=== PATIENT | female | born 1940 | race Caucasian/White ===

== ENCOUNTER 2018-06-27 09:12 | Emergency (ER) | payer MEDICARE, OTHER ==
--- OUTSIDE RECORDS SUMMARY | 2018-06-27 09:55 | XMS REPORT | Continuity of Care Document ---
:1940 Author Organization [facility] Care Team Providers Name Role Phone GITA NÚÑEZ Primary Care Physician Allergies and Intolerances No Allergy Data in the System Medications No Known Medications Problems No Data in the system Procedures No data in the system Results Radiology Results Order: US-ABDOMEN/BACK LIMITED (RUQ)Exam Completion Date:06/08/2018 07: 11:34 AM US-ABDOMEN/BACK LIMITED ( RUQ) ORDERING CLINICAL INFORMATION: GERD w/o esophagitis [phone] -- Gastroesophageal reflux disease without esophagitis ADDITIONAL CLINICAL INFORMATION: None. COMPARISON: None. PROCEDURE: Sonographic evaluation of the right upper quadrant was performed using grayscale ultrasound. FINDINGS: Liver: Normal echotexture. No focal lesions. Common Bile Duct: Measures 0.3 cm diameter, nondilated. Gallbladder: No stones. No wall thickening or pericholecystic fluid. No significant tenderness with transducer pressure. Pancreas: Visualized pancreas unremarkable. Right Kidney: 9.1 cm length. Normal echotexture. No hydronephrosis. No stones. Spleen: 8.5 cm. IMPRESSION: No sonographic evidence of cholecystitis. END OF REPORT Electronically signed By: Mansoor Barber M.D. Read By: MANSOOR BARBER Date: 06/09/2018 09:58 Social History Code Code System Social History Observation Description Dates Observed [id number] SNOMED CT Current Smoking Status Never smoker UNK AdministrativeGender Sex Assigned At Unknown Vital Signs No data in the system Goals Section No data in the system Health Concerns No data in the systemEncounter Diagnosis Date Code Code System Diagnosis Status K21.9 ICD10 GERD WITHOUT ESOPHAGITIS Active Advance Directives No Data in the System Family History No data in the system Functional Status No data in the system Immunizations No data in the system Medical Equipment No data in the system Mental Status No data in the system Assessment and Plan Assessments No data in the systemPlan Of Treatment No data in the systemPending Tests No data in the system Hospital Discharge Instructions No data in the system Reason for Visit No data in the system
--- OUTSIDE RECORDS SUMMARY | 2018-06-27 09:55 | XMS REPORT | Continuity of Care Document ---
:[address] [facility] [place] Support Name Relationship Address Phone PIPER NAM spouse [address] [facility] [place] [address] PIPER NAM spouse [address] [facility] [place] [address] Allergies and Intolerances No Allergy Data in the System Medications No Known Medications Problems No Data in the system Procedures No data in the system Results Laboratory Results Order: CBC DIFF Specimen Source: Body Site : Legend: (G,H)=High, (GG,HH,CH,#H)=Above High Threshold, (#,L)=Low, (##,CL,#L, LL)=Below Low Threshold, (C,CC,CA,#A,A)=Abnormal LOINC Test Result Flag Range Units Date 90-2 1WBC # Bld Auto 6.9 4.8-10.8 K/uL 05/31/2018 10:52 35370-7 1RBC # Bld 4.90 4.20-5.40 M/uL 05/31/2018 10:52 718-7 1Hgb Bld-mCnc 15.2 12.0-16.0 gm/dL 05/31/2018 10:52 4544-3 1Hct VFr Bld Auto 44.9 36.0-48.0 % 05/31/2018 10:52 787-2 1MCV RBC Auto 91.6 80.0-100.0 fL 05/31/2018 10:52 90143-2 1MCHC RBC-mCnc 33.9 30.0-36.5 % 05/31/2018 10:52 67050-3 1MCH RBC Qn 31.0 27.0-34.0 pg 05/31/2018 10:52 60695-0 1RDW RBC 12.5 11.0-15.0 % 05/31/2018 10:52 777-3 1Platelet # Bld Auto 570 H 130-450 K/uL 05/31/2018 10:52 86975-6 1PMV Bld Auto 7.3 6.0-12.0 fL 05/31/2018 10:52 751-8 1Neutrophils # Bld Auto 69 37-80 % 05/31/2018 10:52 32538-4 1Lymphocytes NFr Bld 20 10-50 % 05/31/2018 10:52 5905-5 1Monocytes NFr Bld Auto 7 0-12 % 05/31/2018 10:52 70757-6 1Eosinophil # Bld 3 <=8 % 05/31/2018 10:52 704-7 1Basophils # Bld Auto 0 <=3 % 05/31/2018 10:52 22396-3 1Neutrophils # Bld 4.8 1.8-8.6 K/uL 05/31/2018 10:52 731-0 1Lymphocytes # Bld Auto 1.4 0.5-5.0 K/uL 05/31/2018 10:52 742-7 1Monocytes # Bld Auto 0.5 0.0-1.3 K/uL 05/31/2018 10:52 53797-2 1Eosinophil # Bld 0.2 0.0-0.9 K/uL 05/31/2018 10:52 704-7 1Basophils # Bld Auto 0.0 0.0-0.3 K/ul 05/31/2018 10:52 Performing Lab Footnotes:[facility] - [id number] - [address] [place] [address] EUSEBIA [id number] Order: HEPATIC FUNCT PANEL Specimen Source: Body Site: Legend: (G,H)= High, (GG,HH,CH,#H)=Above High Threshold, (#,L)=Low, (##,CL,#L,LL)=Below Low Threshold, (C,CC,CA,#A,A)=Abnormal LOINC Test Result Flag Range Units Date 2885-2 1Prot SerPl-mCnc 7.5 6.4-8.2 gm/dL 05/31/2018 10:52 1751-7 1Albumin SerPl-mCnc 4.9 H 3.2-4.6 gm/dL 05/31/2018 10:52 58412-0 1Bilirub Bld-mCnc 0.8 0.0-1.2 mg/dL 05/31/2018 10:52 1968-7 1Bilirub Direct SerPl-mCnc 0.2 0.0-0.3 mg/dL 05/31/2018 10:52 6768-6 1ALP SerPl-cCnc 106 40-150 U/L 05/31/2018 10:52 1742-6 1ALT SerPl-cCnc 17 0-55 U/L 05/31/2018 10:52 1920-8 1AST SerPl-cCnc 19 5-37 U/L 05/31/2018 10:52 Performing Lab Footnotes:[facility] - [id number] - [address] [place] [address] EUSEBIA Silva LIO Order: Hepatitis Acute Profile Specimen Source: Blood Body Site: Legend: (G,H)=High, (GG,HH,CH,#H)=Above High Threshold, (#,L)=Low, (##,CL,#L,LL) =Below Low Threshold, (C,CC,CA,#A,A)=Abnormal LOINC Test Result Flag Range Units Date 09782-4 1HAV IgM SerPl Ql NEGATIVE NEGATIVE 05/31/2018 IA 10:52 5195-3 1HBV surface Ag Ser NON REACTIVE NON REACTIVE 05/31/2018 Ql 10:52 97348-0 1HBV core IgM Ser NON REACTIVE NON REACTIVE 05/31/2018 Ql 10:52 09242-6 1HCV Ab s/co SerPl 0.08 0.00-0.99 s/coratio 05/31/2018 IA 10:52 Interpretive Jovanna: 1Non Reactive: < 0.79 Equviocal: 0.80 - 0.99 Reactive: > 1.00 . The CDC recommends that a positive HCV antibody result be followed up with a HCV Nucleic Acid Amplification test(HCV RNA PCR). Performing Lab Footnotes:[facility] - [id number] - [address] [place] [address] EUSEBIA Silva LIO Social History Code Code System Social History Observation Description Dates Observed [id number] SNOMED CT Current Smoking Status Never smoker [...]
--- OUTSIDE RECORDS SUMMARY | 2018-06-27 09:55 | XMS REPORT | Continuity of Care Document ---
:1940 Author Organization [facility] Support Name Relationship Address Phone PIPER NAM spouse [address] [facility] [address] PIPER NAM spouse [address] [facility] [address] Allergies and Intolerances No Allergy Data in the System Medications No Known Medications Problems No Data in the system Procedures Code Code System Procedure Date 28845 CPT4 EGD TRANSORAL BIOPSY SINGLE/MULTIPLE 06/03/2018 Results Pathology Results Order:PATHOLOGY CYTOLOGY HISTOLCollected Date : 06/03/2018 12:00:00 AM TISSUE A. DUODENAL BIOPSIES B. GASTRIC ANTRUM BIOPSY C. GASTRIC BODY POLYP CLINICAL DIAGNOSIS GERD FINAL DIAGNOSIS A. SMALL BOWEL, DUODENUM, BIOPSY: NO SIGNIFICANT PATHOLOGICAL CHANGES. B. STOMACH, ANTRUM, BIOPSY: FOCAL ACTIVE GASTRITIS. NO H. PYLORI IDENTIFIED. C. STOMACH, BODY, POLYPECTOMY: NO SIGNIFICANT PATHOLOGICAL CHANGES. NO H. PYLORI IDENTIFIED. GROSS A. SPECIMEN IS RECEIVED IN [facility] [place], WITH MEDICAL RECORD NUMBER, DATE OF AND "BIOPSY, DUODENUM", AND CONSISTS OF A 0.2 CM. IN DIAMETER AGGREGATE OF SPANGLER TISSUE FRAGMENTS. THE ENTIRE CONTENTS OF THE CONTAINER IS SUBMITTED IN CASSETTE 1. B. SPECIMEN IS RECEIVED IN [facility] [place], WITH MEDICAL RECORD NUMBER, DATE OF AND "BIOPSY, ANTRUM", AND CONSISTS OF TWO 0.2 CM. IN DIAMETER FRAGMENTS OF SPANGLER TISSUE. THE ENTIRE CONTENTS OF THE CONTAINER IS SUBMITTED IN CASSETTE 2. C. SPECIMEN IS RECEIVED IN [facility] [place], WITH MEDICAL RECORD NUMBER, DATE OF AND "GASTRIC BODY POLYP", AND CONSISTS OF A 0.2 CM. IN DIAMETER FRAGMENT OF SPANGLER TISSUE. THE ENTIRE CONTENTS OF THE CONTAINER IS SUBMITTED IN CASSETTE 3. (CG/KI) MICROSCOPIC IN PARTS B AND C, WARTHIN-STARRY STAIN FAILS TO HIGHLIGHT ORGANISMS CONSISTENT WITH H. PYLORI. APPROPRIATE REACTIVE APPEARING CONTROLS ARE REVIEWED. JACKLYN DAS D.O. , PATHOLOGIST (CASE SIGNED 06/04/2018) Social History Code Code System Social History Observation Description Dates Observed [id number] SNOMED CT Current Smoking Status Never smoker [...]
[2018-06-27 10:06] VITALS: BP 126/62
--- NOTE | 2018-06-27 10:14 | UC ---
Respiratory Complaint HPI - HPI Summary HPI Summary: Pt c/o sudden onset of "hoarse voice" began 5 days ago, dry cough began 4days ago that worsens in recumbent position and ST throat that began 2 nights ago - History of Current Complaint Chief Complaint: UCGeneralIllness Stated Complaint: COUGH,LOSS OF VOICE,ST Time Seen by Provider: 06/27/18 09:55 Hx Obtained From: Patient ?: No Onset/Duration: Gradual Onset, Lasting Days, Still Present Timing: Constant Severity Initially: Mild Severity Currently: Mild Pain Intensity: 0 Character: Cough: Nonproductive Aggravating Factors: Recumbent Position Alleviating Factors: Nothing Associated Signs And Symptoms: Positive: Hoarseness - Risk Factors Pulmonary Embolism Risk Factors: Negative Cardiac Risk Factors: Negative Pseudomonas Risk Factors: Negative Tuberculosis Risk Factors: Negative - Allergies/Home Medications Allergies/Adverse Reactions: Allergies Allergy/AdvReac Type Severity Reaction Status Date / Time acyclovir Allergy Hives Verified 06/27/18 10:03 Home Medications: Home Medications Aspirin EC TAB* [Ecotrin EC Low Dose 81 MG*] 81 mg PO DAILY 06/27/18 [History Confirmed 06/27/18] Atorvastatin* [Lipitor 20 MG*] 20 mg PO DAILY 06/27/18 [History Confirmed ] Omeprazole CAP* [Prilosec CAP* 20 MG] 40 mg PO DAILY 06/27/18 [History Confirmed 06/27/18] Ranitidine TAB (NF) [Zantac TAB (NF)] 300 mg PO DAILY 06/27/18 [History Confirmed 06/27/18] PMH/Surg Hx/FS Hx/Imm Hx Previously Healthy: Yes Cardiovascular History: Hypertension - Surgical History Surgical History: Yes Surgery Procedure, Year, and Place: T&A. hysterectomy. oophorectomy - Family History Known Family History: Positive: Cardiac Disease - Social History Occupation: Retired Lives: With Family Alcohol Use: Occasionally Substance Use Type: None Smoking Status (MU): Former Smoker Type: Cigarettes Review of Systems Constitutional: Negative Skin: Negative Eyes: Negative ENT: Sore Throat, Other - "hoarseness" Respiratory: Cough Cardiovascular: Negative Gastrointestinal: Negative Genitourinary: Negative Motor: Negative Neurovascular: Negative Musculoskeletal: Negative Neurological: Negative Psychological: Negative Is Patient Immunocompromised?: No All Other Systems Reviewed And Are Negative: Yes Physical Exam Triage Information Reviewed: Yes Appearance: Well-Appearing Vital Signs: Initial Vital Signs Temp 98.2 F 06/27/18 09:58 Pulse 92 06/27/18 09:58 Resp 16 06/27/18 09:58 BP 126/62 06/27/18 09:58 Pulse Ox 99 06/27/18 09:58 Vital Signs Reviewed: Yes Eye Exam: Normal ENT Exam: Normal ENT: Positive: Normal ENT inspection, Other - PND Dental Exam: Normal Neck exam: Normal Respiratory Exam: Normal Respiratory: Positive: Normal breath sounds Cardiovascular Exam: Normal Musculoskeletal Exam: Normal Neurological Exam: Normal Psychological Exam: Normal Skin Exam: Normal UC Diagnostic Evaluation - Laboratory O2 Sat by Pulse Oximetry: 99 Respiratory Course/Dx - Differential Dx/Diagnosis Differential Diagnosis/HQI/PQRI: Laryngitis Provider Diagnoses: Laryngitis. cough. PND Discharge - Sign-Out/Discharge Documenting (check all that apply): Patient Departure - Discharge Plan Condition: Stable Disposition: HOME Prescriptions: Benzonatate CAP* [Tessalon 100 MG CAP*] 100 mg PO Q8H PRN #30 cap PRN Reason: Cough Cetirizine* [ZyrTEC 10 MG TAB*] 10 mg PO DAILY #20 tab predniSONE TAB* [Deltasone 20 MG TAB*] 20 mg PO DAILY #4 tab Patient Education Materials: Laryngitis (ED), Acute Cough (ED) Referrals: Chloé Lambert NP [Primary Care Provider] - If Needed - Billing Disposition and Condition Condition: STABLE Disposition: Home
== END 2018-06-27 10:24 | disposition home or self-care (01) ==
LOC: UCCORT 09:12
DX: J18.9 Pneumonia, unspecified organism (principal); J04.0 Acute laryngitis; I10 Essential (primary) hypertension; Z88.1 Allergy status to other antibiotic agents; Z79.899 Other long term (current) drug therapy; Z79.82 Long term (current) use of aspirin; Z87.891 Personal history of nicotine dependence
CPT/HCPCS: 99202; G0463

== ENCOUNTER 2018-07-29 18:46 | Emergency (ER) | payer MEDICARE, OTHER ==
[2018-07-29 20:12] VITALS: BP 145/73
--- NOTE | 2018-07-29 21:01 | UC ---
Complaint Female HPI - HPI Summary HPI Summary: 77-year-old female presents with onset of urinary frequency and urgency last evening. States today she has also developed some hematuria. Denies fevers, chills, abdominal pain, back or flank pain, nausea or vomiting, vaginal discharge or bleeding. - History Of Current Complaint Chief Complaint: UCGU Stated Complaint: URINARY Time Seen by Provider: 07/29/18 20:47 Hx Obtained From: Patient ?: No Onset/Duration: Gradual Onset Timing: Constant Severity Initially: Mild Severity Currently: Mild Pain Intensity: 0 Aggravating Factor(s): Nothing Alleviating Factor(s): Nothing Associated Signs And Symptoms: Negative: Fever, Back Pain, Vaginal Bleeding/ Discharge - Allergies/Home Medications Allergies/Adverse Reactions: Allergies Allergy/AdvReac Type Severity Reaction Status Date / Time acyclovir Allergy Hives Verified 07/29/18 20:06 PMH/Surg Hx/FS Hx/Imm Hx Previously Healthy: Yes Endocrine History: Dyslipidemia GI/ History: Gastroesophageal Reflux - Surgical History Surgical History: Yes Surgery Procedure, Year, and Place: T&A. hysterectomy. oophorectomy - Family History Known Family History: Positive: Cardiac Disease - Social History Occupation: Retired Lives: With Family Alcohol Use: Occasionally Substance Use Type: None Smoking Status (MU): Former Smoker Type: Cigarettes - Immunization History Most Recent Tetanus Shot: UTD Review of Systems Constitutional: Negative Skin: Negative Gastrointestinal: Negative Genitourinary: Hematuria, Frequency, Urgency Is Patient Immunocompromised?: No All Other Systems Reviewed And Are Negative: Yes Physical Exam Triage Information Reviewed: Yes Appearance: Well-Appearing, No Pain Distress, Well-Nourished Vital Signs: Initial Vital Signs Temp 98.3 F 07/29/18 20:07 Pulse 120 07/29/18 20:07 Resp 16 07/29/18 20:07 BP 145/73 07/29/18 20:07 Pulse Ox 96 07/29/18 20:07 Vital Signs Reviewed: Yes Respiratory: Positive: Lungs clear, Normal breath sounds, No respiratory distress Cardiovascular: Positive: RRR, No Murmur Abdomen Description: Positive: Nontender, No Organomegaly, Soft. Negative: CVA Tenderness (R), CVA Tenderness (L), Distended, Guarding Neurological: Positive: Alert Skin Exam: Normal Complaint Female Dx - Course Course Of Treatment: 77-year-old female with 2 day history of urinary frequency , urgency, and some hematuria. Afebrile. Urinalysis shows 3+ protein, trace glucose, 1+ ketones, 3+ blood, positive nitrites, 3+ bilirubin, and 3+ leukocyte esterase. Exam is consistent with an acute urinary cystitis with hematuria. Urine culture sent. Will treat with nitrofurantoin twice a day 5 days pending culture results. Follow-up with primary care provider as needed. - Differential Dx/Diagnosis Provider Diagnoses: acute cystitis with hematuria Discharge - Sign-Out/Discharge Documenting (check all that apply): Patient Departure All imaging exams completed and their final reports reviewed: No Studies - Discharge Plan Condition: Stable Disposition: HOME Prescriptions: Nitrofurantoin Monohyd/M-Cryst [Macrobid 100 mg Capsule] 100 mg PO BID #10 cap Patient Education Materials: Urinary Tract Infection in Women (ED) Referrals: Chloé Lambert NP [Primary Care Provider] - If Needed Additional Instructions: Your urine test in the clinic tonight is suggestive of urinary tract infection. We will start her on an antibiotic to treat the infection. You were given a dose of nitrofurantoin in the clinic tonight and I have sent a prescription to the pharmacy. Starting tomorrow take one tablet twice a day for 5 days. Push plenty of fluids. We will send her urine for culture to see what bacteria grows out and make sure that whatever grows out is sensitive to the antibiotic you been prescribed. It' ll take 48-72 hours to get these results. If we need to change your antibiotic we will notify you. Her symptoms should start improving within 3 days of taking the antibiotics. Return here or follow-up with your primary care provider if they do not improve within this time. Seek immediate medical attention if you develop fever greater than 100.5 F, have abdominal or back pain, nausea or vomiting, or any worsening of her symptoms. - Billing Disposition and Condition Condition: STABLE Disposition: Home
[2018-07-29] MEDS: Nitrofurantoin Macrocrystals* 50 MG CAP PO ONE (21:05)
== END 2018-07-29 21:13 | disposition home or self-care (01) ==
LOC: UCCORT 18:46
DX: N30.01 Acute cystitis with hematuria (principal); B96.20 Unspecified Escherichia coli [E. coli] as the cause of diseases classified elsewhere; Z87.891 Personal history of nicotine dependence; Z88.8 Allergy status to other drugs, medicaments and biological substances
CPT/HCPCS: 81003; 87077; 87086; 87186; 99212; A9270-GY; G0463

== ENCOUNTER 2018-08-10 10:13 | Emergency (ER) | payer MEDICARE, OTHER ==
[2018-08-10 11:25] VITALS: BP 146/82
--- NOTE | 2018-08-10 11:47 | UC ---
Complaint Female HPI - HPI Summary HPI Summary: urinary frequency and urgency x 1 day no dysuria, no fever no chills, mild back discomfort + hematuria - History Of Current Complaint Chief Complaint: UCGU Stated Complaint: URINARY Time Seen by Provider: 08/10/18 10:56 Hx Obtained From: Patient Onset/Duration: Gradual Onset, Lasting Days - 1, Still Present Timing: Constant Severity Initially: Moderate Severity Currently: Moderate Pain Intensity: 1 Radiates to: right back Character: Dull Aggravating Factor(s): Urination Alleviating Factor(s): Nothing Associated Signs And Symptoms: Negative: Fever, Back Pain, Vaginal Bleeding/ Discharge, Vaginal Discharge, Nausea, Vomiting(# Of Episodes =), Genital Swelling, Genital Blisters - Allergies/Home Medications Allergies/Adverse Reactions: Allergies Allergy/AdvReac Type Severity Reaction Status Date / Time acyclovir Allergy Hives Verified 08/10/18 11:27 Home Medications: Home Medications Ibuprofen TAB* [Motrin TAB* 400 MG] 400 mg PO ONCE PRN 08/10/18 [History Confirmed 08/10/18] PMH/Surg Hx/FS Hx/Imm Hx GI/ History: Gastroesophageal Reflux - Surgical History Surgical History: Yes Surgery Procedure, Year, and Place: T&A. hysterectomy. oophorectomy - Family History Known Family History: Positive: Cardiac Disease - Social History Alcohol Use: Occasionally Substance Use Type: None Smoking Status (MU): Former Smoker Type: Cigarettes - Immunization History Most Recent Tetanus Shot: UTD Review of Systems Constitutional: Negative Skin: Negative Eyes: Negative ENT: Negative Respiratory: Negative Genitourinary: Hematuria, Frequency, Urgency Is Patient Immunocompromised?: No All Other Systems Reviewed And Are Negative: Yes Physical Exam Triage Information Reviewed: Yes Appearance: Well-Appearing, No Pain Distress, Well-Nourished Vital Signs: Initial Vital Signs Temp 98 F 08/10/18 11:13 Pulse 100 08/10/18 11:13 Resp 18 08/10/18 11:13 BP 146/82 08/10/18 11:13 Pulse Ox 99 08/10/18 11:13 Vital Signs Reviewed: Yes Eyes: Positive: Conjunctiva Clear ENT: Positive: Normal ENT inspection, Hearing grossly normal, Pharynx normal, Pharyngeal erythema Neck: Positive: Supple, Nontender, No Lymphadenopathy Respiratory: Positive: Chest non-tender, Lungs clear, Normal breath sounds Cardiovascular: Positive: RRR, No Murmur, Pulses Normal Abdominal Exam: Normal Abdomen Description: Positive: Nontender, Soft. Negative: CVA Tenderness (R), CVA Tenderness (L), Distended, Guarding Bowel Sounds: Positive: Present Skin Exam: Normal Complaint Female Dx - Differential Dx/Diagnosis Provider Diagnoses: uti Discharge - Sign-Out/Discharge Documenting (check all that apply): Patient Departure All imaging exams completed and their final reports reviewed: No Studies - Discharge Plan Condition: Stable Disposition: HOME Prescriptions: Nitrofurantoin Monohyd/M-Cryst [Macrobid 100 mg Capsule] 100 mg PO BID #14 cap Patient Education Materials: Urinary Tract Infection in Men (ED) Referrals: Chloé Lambert NP [Primary Care Provider] - 7 Days - Billing Disposition and Condition Condition: STABLE Disposition: Home
== END 2018-08-10 11:52 | disposition home or self-care (01) ==
LOC: UCCORT 10:13
DX: N39.0 Urinary tract infection, site not specified (principal); Z88.3 Allergy status to other anti-infective agents; Z87.891 Personal history of nicotine dependence
CPT/HCPCS: 81003; 87086; 99212; G0463